=== PATIENT | female | born 1940 | race Caucasian/White ===

== ENCOUNTER 2017-05-08 06:14 | Outpatient (CLI) | payer MEDICARE | END 2017-05-08 06:15 | disposition critical access hospital (66) | LOC: EMS 06:14 | PROVIDERS: ATTEND Surgery | DX: R10.9 Unspecified abdominal pain (principal); R11.2 Nausea with vomiting, unspecified; R42 Dizziness and giddiness | CPT/HCPCS: A0425; A0427 ==

== ENCOUNTER 2017-05-08 06:52 | Emergency (ER) | payer MEDICARE ==
[2017-05-08] MEDS ORDERED: SODIUM CHLORIDE 0.9% 1,000 ML IV ONE (07:36)
[2017-05-08] MEDS ORDERED: ONDANSETRON 4 MG/2 ML VIAL IVP STA (07:36)
[2017-05-08] MEDS ORDERED: FAMOTIDINE 20 MG/50 ML 50 ML IV ONE ×2 (07:36→07:51)
--- NOTE | 2017-05-08 07:40 | ED Physician Documentation ---
PD HPI ABD PAIN - Stated complaint Stated Complaint: NAUSEA/ DIZZY - Chief complaint Chief Complaint: General - History obtained from History obtained from: Patient, EMS - History of Present Illness Timing - onset: How many hours ago (4) Timing - details: Still present Quality: Dull Location: [facility] Associated symptoms: Nausea, Vomiting (once), Diarrhea (Loose stool). No: Fever , Dysuria Similar symptoms before: Has not had sx before - Treatment prior to arrival Treatment prior to arrival: Zofran 4 mg is administered by medics prior to arrival. - Additional information Additional information: The patient is a 77-year-old female who presents with upper abdominal pain that started about 3 AM today. She then found she was dizzy when standing. She took Pepto-Bismol, and since that time has had 3 episodes of diarrhea, with loose stool. She has had nausea with one episode of vomiting. She denies fever or dysuria, and denies chest pain or shortness of breath. She had noticed coughing of phlegm when her pain first started at 3 AM. She reports being under significant stress recently associated with selling her house and having to move. She was seen by her primary physician 2 weeks ago for stress related symptoms and was started on antianxiety medication. She was seen by her primary physician in follow-up yesterday, and her blood pressure had improved after taking the antianxiety medication. She denies history of similar symptoms in the past. Her past history is significant for hospitalization for Clostridium difficile 2 years ago. Review of Systems Constitutional: reports: Other (Dizziness when standing). denies: Fever Ears: denies: Tinnitus/ringing Nose: denies: Congestion Throat: denies: Sore throat Cardiac: denies: Chest pain / pressure, Palpitations Respiratory: reports: Cough (Slight cough). denies: Dyspnea GI: reports: Abdominal Pain, Nausea, Vomiting (Once), Diarrhea (Loose stool 3.) : denies: Dysuria Skin: denies: Rash Musculoskeletal: denies: Back pain, Extremity swelling Neurologic: denies: Focal weakness, Numbness, Headache Psychiatric: reports: Anxiety PD PAST MEDICAL HISTORY - Past Medical History Cardiovascular: Hypertension Respiratory: None Neuro: None Endocrine/Autoimmune: None GI: C.difficile - Past Surgical History General: Appendectomy - Present Medications Home Medications: Ambulatory Orders Medication Instructions Recorded Confirmed Promethazine [Phenergan] 25 - 50 mg PO Q6H PRN #10 tab 05/08/17 raNITIdine [Zantac] 150 mg PO BID #30 tablet 05/08/17 - Allergies Allergies/Adverse Reactions: Allergies Allergy/AdvReac Type Severity Reaction Status Date / Time Sulfa (Sulfonamide Allergy Rash Verified 05/08/17 07:00 Antibiotics) onions Allergy Unknown Uncoded 05/08/17 07:00 - Social History Does the pt smoke?: No PD ED PE NORMAL - Vitals Vital signs reviewed: Yes (Systolic hypertension initially.) - General General: Alert and oriented X 3, Well developed/nourished - HEENT HEENT: Atraumatic, EOMI, Pharynx benign - Neck Neck: Supple, no meningeal sign, No adenopathy, No JVD - Cardiac Cardiac: RRR, No murmur - Respiratory Respiratory: No respiratory distress, Clear bilaterally - Abdomen Abdomen: Normal bowel sounds, Soft, Non distended, No organomegaly, Other (Mild left upper quadrant/epigastric tenderness to palpation, without rebound tenderness or guarding.) - Back Back: No CVA TTP - Derm Derm: No rash - Extremities Extremities: No edema, No calf tenderness / cord - Neuro Neuro: Alert and oriented X 3, No motor deficit, Normal speech Results - Vitals Vitals: Vital Signs - 24 hr 05/08/17 05/08/17 06:51 09:28 Temperature 36.2 C L 36.6 C Heart Rate 54 L 71 Respiratory 14 17 Rate Blood Pressure 149/65 H 122/54 L O2 Saturation 99 100 Oxygen O2 Source Room air - EKG (time done) 08:03 Rate: Rate (enter#) (55) Rhythm: NSR [place]: Normal Intervals: Normal AR QRS: Normal Ischemia: Non specific changes Compare to prior EKG: Old EKG unavailable Computer interpretation: Agree with computer - Labs Labs: Laboratory Tests 05/08/17 05/08/17 05/08/17 07:46 07:55 07:55 WBC 10.0 RBC 5.02 Hgb 15.5 Hct 46.5 MCV 92.5 MCH 30.9 MCHC 33.3 RDW 13.9 Plt Count Neut # 8.0 H Lymph # 1.3 L [place] # 0.5 Eos # 0.1 Baso # 0.1 Absolute Nucleated RBC 0.01 Nucleated RBCs 0.1 Sodium 138 Potassium 4.1 Chloride 104 Carbon Dioxide 26 Anion Gap 8.0 BUN 15 Creatinine 0.8 Estimated GFR (MDRD) 70 L Glucose 103 H Calcium 9.2 Total Bilirubin 0.6 AST 28 ALT 18 Alkaline Phosphatase 33 L Total Protein 7.7 Albumin 4.1 Globulin 3.6 Albumin/Globulin Ratio 1.1 Lipase 38 Urine Color YELLOW Urine Clarity CLEAR Urine pH 6.0 Ur Specific [place] <=1.005 Urine Protein NEGATIVE Urine Glucose (UA) NEGATIVE Urine Ketones NEGATIVE Urine Occult Blood NEGATIVE Urine Nitrite NEGATIVE Urine Bilirubin NEGATIVE Urine Urobilinogen 0.2 (NORMAL) Ur Leukocyte Esterase NEGATIVE Ur Microscopic Review NOT INDICATED Urine Culture Comments NOT INDICATED PD MEDICAL DECISION MAKING - ED course Complexity details: reviewed results, re-evaluated patient, considered differential, d/w patient, d/w family ED course: The patient's presentation is most consistent with gastritis versus peptic ulcer disease.Her presentation does not suggest cardiac etiology for her symptoms, nor pulmonary etiology. There is no clinical evidence to suggest biliary colic or pancreatitis. Treatment in the emergency department included administration of normal saline 1 L IV, Zofran 4 mg IV, and famotidine 20 mg IV. She is being discharged with prescriptions for ranitidine and for Phenergan. I discussed with her and her the diagnosis, symptomatic treatment and outpatient follow-up, as well as potentially worrisome signs or symptoms that should prompt reevaluation in the emergency department. Departure - Departure Disposition: 01 Home, Self Care Clinical Impression: Gastritis Qualifiers: Gastritis type: unspecified gastritis Chronicity: acute Gastritis bleeding: without bleeding Qualified Code(s): K29.00 - Acute gastritis without bleeding Condition: Stable Instructions: ED PUD Vs Gastritis Follow-Up: Hua Ortega MD [Primary Care Provider] - Prescriptions: Promethazine [Phenergan] 25 - 50 mg PO Q6H PRN #10 tab PRN Reason: Nausea / Vomiting raNITIdine [Zantac] 150 mg PO BID #30 tablet Comments: Drink plenty of fluids. Take ranitidine twice daily as prescribed. You can use liquid antacid, such as Maalox or Mylanta if needed for recurrent symptoms. Follow-up with your primary physician within 1-2 weeks. Call to schedule an appointment. Return to the emergency department if you develop increasing abdominal pain, persistent vomiting, or otherwise worsening symptoms.
[2017-05-08] MEDS ORDERED: ONDANSETRON 4 MG/2 ML VIAL ONE (07:51)
[2017-05-08 08:04] LABS: BILIRUBIN,URINE NEGATIVE (NEGATIVE)
[2017-05-08 08:08] LABS: BASOPHILS # (AUTO) 0.1 10^3/uL (0.0-0.1); BASOPHILS % (AUTO) 0.7 %; EOSINOPHILS # (AUTO) 0.1 10^3/uL (0.0-0.7); EOSINOPHILS % (AUTO) 0.8 %; HCT - HEMATOCRIT 46.5 % (37.0-47.0); HGB - HEMOGLOBIN 15.5 g/dL (12.0-16.0); LYMPHOCYTES # (AUTO) 1.3 10^3/uL (1.5-3.5); LYMPHOCYTES % (AUTO) 13.4 %; MEAN CORPUSCULAR HEMOGLOBIN 30.9 pg (27.0-31.0); MEAN CORPUSCULAR HGB CONC 33.3 g/dL (32.0-36.0); MEAN CORPUSCULAR VOLUME 92.5 fL (81.0-99.0); MONOCYTES # (AUTO) 0.5 10^3/uL (0.0-1.0); MONOCYTES % (AUTO) 5.3 %; NEUTROPHILS % (AUTO) 79.8 %; NUCLEATED RED BLOOD CELLS AUTO 0.1 /100WBC; RED BLOOD COUNT 5.02 10^6/uL (4.20-5.40); RED CELL DISTRIBUTION WIDTH 13.9 % (12.0-15.0)
[2017-05-08 08:09] LABS: UA CHARGE (STRIP ONLY) YES; UR CULTURE IF IND NOT INDICATED
[2017-05-08 08:22] LABS: ALBUMIN/GLOBULIN RATIO 1.1 (1.0-2.2); BILIRUBIN,TOTAL 0.6 mg/dL (0.2-1.0); CALCIUM 9.2 mg/dL (8.5-10.3); CREATININE 0.8 mg/dL (0.4-1.0); POTASSIUM 4.1 mmol/L (3.5-5.0); TOTAL PROTEIN 7.7 g/dL (6.7-8.2)
[2017-05-08 10:16] VITALS: BP 122/58
== END 2017-05-08 10:27 | disposition home or self-care (01) ==
LOC: EDUNIT# → ED 06:52
DX: K29.70 Gastritis, unspecified, without bleeding (principal); I10 Essential (primary) hypertension
CPT/HCPCS: 36415; 80053; 81001; 81003; 83690; 85025; 87086; 93005; 96361; 96365; 96375; 99284

== ENCOUNTER 2017-09-03 07:44 | Outpatient (CLI) | payer MEDICARE | END 2017-09-03 07:45 | disposition short-term general hospital (02) | LOC: EMS 07:44 | PROVIDERS: ATTEND Surgery | DX: R68.83 Chills (without fever) (principal); R25.1 Tremor, unspecified | CPT/HCPCS: A0425; A0429 ==

== ENCOUNTER 2018-04-11 15:30 | Outpatient (CLI) | payer MEDICARE | END 2018-04-11 15:31 | disposition critical access hospital (66) | LOC: EMS 15:30 | PROVIDERS: ATTEND Surgery | DX: R11.0 Nausea (principal); R25.9 Unspecified abnormal involuntary movements | CPT/HCPCS: A0425; A0429 ==

== ENCOUNTER 2018-04-11 16:09 | Emergency (ER) | payer MEDICARE ==
--- NOTE | 2018-04-11 16:54 | ED Physician Documentation ---
History of Present Illness - Stated complaint Stated Complaint: Shaky/nausea - Chief complaint Chief Complaint: General - History obtained from History obtained from: Patient, EMS - History of Present Illness Timing: Today Pain level max: 1 Pain level now: 0 Improved by: nothing Worsened by: nothing - Additonal information Additional information: Patient is a 78 year old female who states that today she felt shaky and lightheaded today. No syncope. States she had mild nausea as well. Thinks her chest felt tight, but is unsure. States had an FL last year and has very poor memory since then. doesn't know when symptoms started or ended. Her has been in [facility] and was scheduled to come home today. States that is stressful for her. Review of Systems Unable to obtain: Other (poor historian) Constitutional: denies: Fever Ears: denies: Ear pain Nose: denies: Rhinorrhea / runny nose, Congestion GI: reports: Nausea (states felt mildly nauseated). denies: Vomiting Skin: denies: Rash Musculoskeletal: denies: Neck pain, Back pain Neurologic: reports: Confused (baseline per friends at bedside). denies: Head injury, LOC PD PAST MEDICAL HISTORY - Past Medical History Past Medical History: Yes Cardiovascular: Hypertension, [place] Respiratory: None Endocrine/Autoimmune: None GI: C.difficile Psych: Anxiety - Past Surgical History Past Surgical History: Yes General: Appendectomy Cardiovascular: Angioplasty - Present Medications Home Medications: Ambulatory Orders Medication Instructions Recorded Confirmed Promethazine [Phenergan] 25 - 50 mg PO Q6H PRN #10 tab 05/08/17 raNITIdine [Zantac] 150 mg PO BID #30 tablet 05/08/17 - Allergies Allergies/Adverse Reactions: Allergies Allergy/AdvReac Type Severity Reaction Status Date / Time Sulfa (Sulfonamide Allergy Rash Verified 04/11/18 16:49 Antibiotics) onions Allergy Unknown Uncoded 05/08/17 07:00 - Social History Does the pt smoke?: No Smoking Status: Never smoker Does the pt drink ETOH?: No Does the pt have substance abuse?: No - Immunizations Immunizations are current?: Yes PD ED PE NORMAL - Vitals Vital signs reviewed: Yes - General General: Alert and oriented X 3, No acute distress, Well developed/nourished - HEENT HEENT: PERRL, Moist mucous membranes, Pharynx benign - Neck Neck: Supple, no meningeal sign - Cardiac Cardiac: RRR, Strong equal pulses - Respiratory Respiratory: No respiratory distress, Clear bilaterally - Abdomen Abdomen: Soft, Non tender, Non distended - Back Back: No spinal TTP - Derm Derm: Warm and dry, No rash - Extremities Extremities: No edema, No calf tenderness / cord - Neuro Neuro: Alert and oriented X 3 - Psych Psych: Other (appears anxious) Results - Vitals Vitals: Vital Signs - 24 hr 04/11/18 04/11/18 04/11/18 16:25 17:00 17:30 Temperature 37 C Heart Rate 77 80 72 Respiratory 17 18 16 Rate Blood Pressure 132/71 H 124/67 122/73 O2 Saturation 100 100 100 04/11/18 04/11/18 04/11/18 18:00 18:30 19:00 Temperature Heart Rate 73 75 74 Respiratory 15 16 16 Rate Blood Pressure 124/68 126/67 100/63 O2 Saturation 100 100 99 04/11/18 20:02 Temperature Heart Rate 70 Respiratory 16 Rate Blood Pressure 102/65 O2 Saturation 99 Oxygen O2 Source Room air - EKG (time done) 1641 Rate: Rate (enter#) (70) Rhythm: NSR [place]: Normal Intervals: Normal DC, LBBB 2054 Rate: Rate (enter#) (58) Rhythm: NSR [place]: Normal Intervals: LBBB Compare to prior EKG: Unchanged from prior EKG - Labs Labs: Laboratory Tests 04/11/18 04/11/18 04/11/18 16:18 17:16 17:16 WBC 7.9 RBC 4.56 Hgb 14.1 Hct 42.6 MCV 93.4 MCH 31.0 MCHC 33.1 RDW 14.1 Plt Count 210 MPV 9.5 Neut # (Auto) 4.7 Lymph # (Auto) 2.1 [place] # (Auto) 0.9 Eos # (Auto) 0.2 Baso # (Auto) 0.0 Absolute Nucleated RBC 0.00 Nucleated RBC % 0.1 Sodium 139 Potassium 3.4 L Chloride 106 Carbon Dioxide 23 Anion Gap 10.0 BUN 14 Creatinine 0.9 Estimated GFR (MDRD) 61 L Glucose 103 H Calcium 9.4 Total Bilirubin 0.8 AST 39 ALT 28 Alkaline Phosphatase 46 Troponin I Total Protein 7.1 Albumin 3.9 Globulin 3.2 Albumin/Globulin Ratio 1.2 Lipase 37 Urine Color YELLOW Urine Clarity CLEAR Urine pH 7.0 Ur Specific [place] <=1.005 Urine Protein NEGATIVE Urine Glucose (UA) NEGATIVE Urine Ketones NEGATIVE Urine Occult Blood NEGATIVE Urine Nitrite NEGATIVE Urine Bilirubin NEGATIVE Urine Urobilinogen 0.2 (NORMAL) Ur Leukocyte Esterase NEGATIVE Ur Microscopic Review NOT INDICATED Urine Culture Comments NOT INDICATED 04/11/18 04/11/18 17:16 20:23 WBC RBC Hgb Hct MCV MCH MCHC RDW Plt Count MPV Neut # (Auto) Lymph # (Auto) [place] # (Auto) Eos # (Auto) Baso # (Auto) Absolute Nucleated RBC Nucleated RBC % Sodium Potassium Chloride Carbon Dioxide Anion Gap BUN Creatinine Estimated GFR (MDRD) Glucose Calcium Total Bilirubin AST ALT Alkaline Phosphatase Troponin I < 0.04 < 0.04 Total Protein Albumin Globulin Albumin/Globulin Ratio Lipase Urine Color Urine Clarity Urine pH Ur Specific [place] Urine Protein Urine Glucose (UA) Urine Ketones Urine Occult Blood Urine Nitrite Urine Bilirubin Urine Urobilinogen Ur Leukocyte Esterase Ur Microscopic Review Urine Culture Comments - Rads (name of study) cxr Radiology: Prelim report reviewed, EMP read contemporaneously, See rad report ( No acute abnormality) PD MEDICAL DECISION MAKING - ED course Complexity details: reviewed old records, reviewed results, re-evaluated patient , considered differential (No ST elevation [place], no aortic dissection, no PE, no tension pneumothorax, no aortic aneurysm), d/w patient, d/w family ED course: Patient is a 78-year-old female who presents to the emergency department with what appears to be an anxiety attack today. Troponin negative 2. No acute changes on EKG. Symptoms resolved with Ativan. She is well-appearing, nontoxic. Requesting to go home at this time. We will have her follow-up closely with her doctor. Had no recurrent symptoms in the emergency department. Patient counseled regarding signs and symptoms for which I believe and urgent re-evaluation would be necessary. Patient with good understanding of and agreement to plan and is comfortable going home at this time This document was made in part using voice recognition software. While efforts are made to proofread this document, sound alike and grammatical errors may occur. - Sepsis Event Vital Signs: Vital Signs - 24 hr 04/11/18 04/11/18 04/11/18 16:25 17:00 17:30 Temperature 37 C Heart Rate 77 80 72 Respiratory 17 18 16 Rate Blood Pressure 132/71 H 124/67 122/73 O2 Saturation 100 100 100 04/11/18 04/11/18 04/11/18 18:00 18:30 19:00 Temperature Heart Rate 73 75 74 Respiratory 15 16 16 Rate Blood Pressure 124/68 126/67 100/63 O2 Saturation 100 100 99 04/11/18 20:02 Temperature Heart Rate 70 Respiratory 16 Rate Blood Pressure 102/65 O2 Saturation 99 Oxygen O2 Source Room air Departure - Departure Disposition: 01 Home, Self Care Clinical Impression: Anxiety Condition: Good Instructions: ED Panic Attack Follow-Up: Hua Ortega MD [Primary Care Provider] - Within 3 Days Comments: The cause of your symptoms is unclear today, but may be related to anxiety. Please return if you worsen. Follow-up closely with your doctor for further care. Discharge Date/Time: 04/11/18 21:09
[2018-04-11] MEDS ORDERED: LORazepam 0.5 MG TABLET PO STA (17:05)
[2018-04-11 17:24] LABS: BASOPHILS % (AUTO) 0.5 %; EOSINOPHILS # (AUTO) 0.2 10^3/uL (0.0-0.7); EOSINOPHILS % (AUTO) 2.1 %; HGB - HEMOGLOBIN 14.1 g/dL (12.0-16.0); LYMPHOCYTES # (AUTO) 2.1 10^3/uL (1.5-3.5); LYMPHOCYTES % (AUTO) 26.1 %; MEAN CORPUSCULAR HGB CONC 33.1 g/dL (32.0-36.0); MEAN CORPUSCULAR VOLUME 93.4 fL (81.0-99.0); MEAN PLATELET VOLUME 9.5 fL (7.9-10.8); MONOCYTES # (AUTO) 0.9 10^3/uL (0.0-1.0); MONOCYTES % (AUTO) 11.2 %; NEUTROPHILS # (AUTO) 4.7 10^3/uL (1.5-6.6); NEUTROPHILS % (AUTO) 60.1 %; PLT - PLATELET COUNT 210 10^3/uL (130-450); RED BLOOD COUNT 4.56 10^6/uL (4.20-5.40); RED CELL DISTRIBUTION WIDTH 14.1 % (12.0-15.0); WHITE BLOOD COUNT 7.9 x10^3/uL (4.8-10.8)
[2018-04-11 17:32] LABS: ALBUMIN 3.9 g/dL (3.2-5.5); ALBUMIN/GLOBULIN RATIO 1.2 (1.0-2.2); BILIRUBIN,TOTAL 0.8 mg/dL (0.2-1.0); CALCIUM 9.4 mg/dL (8.5-10.3); CREATININE 0.9 mg/dL (0.4-1.0); TOTAL PROTEIN 7.1 g/dL (6.7-8.2)
--- NOTE | 2018-04-11 17:40 | XRAY Report ---
Procedure Date: 04/11/2018 Accession Number: [id number] / [id number] Procedure: XR - Chest 1 View X-Ray CPT Code: 10226 FULL RESULT: EXAM: CHEST RADIOGRAPHY EXAM DATE: 04/11/2018 05:24 PM. CLINICAL HISTORY: Chest pain. COMPARISON: None. TECHNIQUE: 1 view. FINDINGS: Lungs/Pleura: Linear scarring in the left lower lung and right infrahilar region. Calcified right upper lung and left upper lung granulomas. No pneumothorax. No vascular congestion. Mediastinum: Heart size upper normal. Aorta is mildly tortuous. Aortic atherosclerosis. Other: Changes are seen from median sternotomy. Bilateral Shoulder calcific tendinosis. IMPRESSION: 1. No acute disease in the chest. RADIA
[2018-04-11 17:49] LABS: BILIRUBIN,URINE NEGATIVE (NEGATIVE); GLUCOSE, URINE (UA) NEGATIVE (NEGATIVE); KETONES,URINE (UA) NEGATIVE (NEGATIVE); LEUKOCYTE ESTERASE, URINE NEGATIVE (NEGATIVE); NITRITE,URINE NEGATIVE (NEGATIVE); OCCULT BLOOD,URINE NEGATIVE (NEGATIVE); PROTEIN,URINE NEGATIVE (NEGATIVE); UROBILINOGEN,URINE 0.2 (NORMAL) E.U./dL (NORMAL)
[2018-04-11 17:51] LABS: CLARITY,URINE CLEAR (CLEAR)
[2018-04-11 20:03] VITALS: BP 102/65
== END 2018-04-11 21:09 | disposition home or self-care (01) ==
LOC: EDUNIT# → SUPCPDRO 16:09 → ED 16:09
DX: F41.9 Anxiety disorder, unspecified (principal); I25.2 Old myocardial infarction; I10 Essential (primary) hypertension
CPT/HCPCS: 36415; 71045; 80053; 81003; 83690; 84484; 85025; 93005; 99284; A9270; 81001; 87086

== ENCOUNTER 2022-10-12 09:00 | Outpatient (CLI) | payer MEDICARE ==
--- NOTE | 2022-10-12 17:01 | XRAY Report ---
PROCEDURE: Chest 2 View X-Ray INDICATIONS: PRODUCTIVE COUGH/FATIGUE TECHNIQUE: 2 views of the chest were acquired. COMPARISON: None FINDINGS: Surgical changes and devices: Midline sternotomy wires Lungs and pleura: No pleural effusions or pneumothorax. Lungs are clear. Calcified granuloma noted in the right lung apex. Hyperinflation chronic interstitial changes Mediastinum: Mediastinal contours are normal. Heart size is normal. Bones and chest wall: No suspicious bony abnormalities. Soft tissues appear unremarkable. IMPRESSION: No acute cardiopulmonary findings Reviewed by: Minor Tubbs MD on 10/12/2022 4:00 PM [facility] Approved by: Minor Tubbs MD on 10/12/2022 4:00 PM [facility] Station ID: [id number]
== END 2022-10-12 09:01 | disposition home or self-care (01) ==
LOC: DI.S 09:00
PROVIDERS: ATTEND Physician Assistant Medical
DX: R05.8 Other specified cough (principal); R53.83 Other fatigue